=== PATIENT | female | born 1965 | race Caucasian/White ===

== ENCOUNTER 2023-03-10 11:34 | Outpatient (REF) | payer MEDICARE, MEDICAID, SELFPAY ==
--- NOTE | 2023-03-11 11:20 | MHC.AU.HA3 ---
Hearing Instrument Follow-Up- Binaural Date of Visit: 03/11/23 Right Ear: Model Bal, Color, Serial Number: Jordan Dumont M70-R SN: [id number] Color: Yusra Loss Control Technician Repair Warranty: 11/26/2022 Loss Control Technician Loss and Damage Warranty: 11/26/2022 [facility] Service Plan: 09/10/2020 Battery Size: Rechargeable Duplex Trimmer/Slim Tube: 1P [place]old/Dome/CShell/SlimTip:Small power dome (no retention tail) Type of Wax Guard: CeruShield Dispensed By: [facility] Date of Fittin09/11/2019 Left Ear: Bal, , Color, Serial Number: Jordan Dumont M70-R SN: [id number] Color: Ilenee Loss Control Technician Repair Warranty: 11/26/2022 Loss Control Technician Loss and Damage Warranty: 11/26/2022 [facility] Service Plan: 09/10/2020 Battery Size: Rechargeable Duplex Trimmer/Slim Tube: 1P Earmold/Dome/CShell/SlimTip: Small power dome (no retention tail) Type of Wax Guard: CeruShield Dispensed By: [facility] Date of Fittin09/11/2019 Follow-Up Summary: Both hearing aids, field administrator, cord, and wall plug were dropped off reporting the hearing aids are not charging. Confirmed in office. Able to reboot the hearing aids by pressing and holding the bottom of the multifunction button for 15 seconds then [address] them in the field administrator for 30 seconds. Hearing aids started charging again and fully charged in office. Connected to [employer] software - performed firmware update that noted it would improve the stability of rechargeable devices as well. Also provided new wall plug with rounded corners as [employer] has recognized that old square wall plugs can cause issues with charging. Recommendations: Hearing instrument follow-up or maintenance as needed. Please contact our clinic with any questions or concerns. Signature: Provider: Anna Henson, [facility]
== END 2023-03-10 11:35 | disposition home or self-care (01) ==
LOC: HO.HAP 11:34
PROVIDERS: Visit Provider Family Medicine
DX: Z13.89 Encounter for screening for other disorder (principal)

== ENCOUNTER 2023-03-14 08:44 | Outpatient (REF) | payer MEDICARE, MEDICAID, SELFPAY | END 2023-03-14 08:45 | disposition home or self-care (01) | LOC: HO.HAP 08:44 | PROVIDERS: Visit Provider Family Medicine | DX: Z46.1 Encounter for fitting and adjustment of hearing aid (principal); H90.3 Sensorineural hearing loss, bilateral | CPT/HCPCS: 92593; 99499 ==

== ENCOUNTER 2023-09-12 08:35 | Outpatient (RCR) | payer MEDICARE, MEDICAID, SELFPAY ==
--- NOTE | ~2023-09-12 | XR_ITS ---
EXAMINATION: XR FOOT, RIGHT CLINICAL INFORMATION: Nonhealing wound, right foot COMPARISON: None available. TECHNIQUE: AP, lateral, and oblique views of the right foot. FINDINGS: The bones are intact. No fracture. No bone destruction or periosteal reaction. Alignment is anatomic. Mild degenerative change of the first metatarsophalangeal joint. Moderate sized posterior plantar calcaneal spur and small Achilles enthesophyte are noted XR/XR foot RT min 3V IMPRESSION: 1. No acute bony abnormality. 2. No evidence of osteomyelitis.
== END 2023-12-02 10:32 | disposition home or self-care (01) ==
LOC: HO.WCC 08:35
PROVIDERS: PCP Family Medicine; Visit Provider Physician Assistant
DX: L97.512 Non-pressure chronic ulcer of other part of right foot with fat layer exposed (principal); I73.9 Peripheral vascular disease, unspecified; I73.00 Raynaud's syndrome without gangrene; G60.9 Hereditary and idiopathic neuropathy, unspecified; M48.00 Spinal stenosis, site unspecified; I10 Essential (primary) hypertension; Z87.891 Personal history of nicotine dependence
CPT/HCPCS: 11042; 73630; 99212

== ENCOUNTER 2023-10-27 08:32 | Outpatient (REF) | payer MEDICARE, MEDICAID, SELFPAY ==
--- NOTE | ~2023-10-27 | MR_ITS ---
EXAMINATION: MR FOOT WITHOUT AND WITH CONTRAST, RIGHT CLINICAL INFORMATION: Nonhealing wound 4th and 5th digits. COMPARISON: Radiographs 09/23/2023 TECHNIQUE: MRI of the right foot was performed before and after the intravenous administration of 8 mL Gadavist on a high-field scanner. FINDINGS: There is subcutaneous edema and enhancement predominantly at the dorsal aspect of the proximal 5th toe and the interspace with the 4th toe without a focal fluid collection. There is minimal edema of the 5th proximal phalanx with no appreciable enhancement or loss of T1 fatty marrow signal. This is most likely reactive. The possibility of very early or mild osteomyelitis in the setting of a wound is difficult to completely exclude. No evidence to suggest osteomyelitis elsewhere. There are degenerative changes at the 1st MTP joint and hallux sesamoid complex with presumed resection of the medial sesamoid. Visualized flexor and extensor tendons are intact. MR/MR foot RT wo/w con IMPRESSION: Minimal edema of the 5th proximal phalanx which is most likely reactive. No appreciable enhancement or loss of T1 fatty marrow signal. The possibility of very early or mild osteomyelitis in the setting of a wound is difficult to completely exclude. No abscess.
[2023-10-27] MEDS: gadobutroL 10 ML VIAL IVPUSH (09:46)
== END 2023-10-27 08:33 | disposition home or self-care (01) ==
LOC: HO.MRI 08:32
PROVIDERS: PCP Family Medicine; Visit Provider Physician Assistant
DX: S81.801D Unspecified open wound, right lower leg, subsequent encounter (principal)
CPT/HCPCS: 73720; A9585

== ENCOUNTER 2024-05-30 07:12 | Outpatient (REF) | payer MEDICARE, MEDICAID, SELFPAY ==
[2024-05-30 08:22] LABS: Anion Gap 9 (12-20); Blood Urea Nitrogen 11 mg/dL (9-16); Calcium 9.1 mg/dL (8.4-10.2); Carbon Dioxide 25 mmol/L (22-29); Chloride 108 mmol/L (96-108); Cholesterol 159 mg/dL (<200); Estimated Glomerular Filt Rate > 60; Glucose Random 83 mg/dL (60-115); HDL Cholesterol 50 mg/dL (>40); LDL Cholesterol Calculated 88 mg/dL (<100); Potassium 4.4 mmol/L (3.3-5.1); Sodium 138 mmol/L (135-145); Triglycerides 108 mg/dL (<150)
== END 2024-05-30 07:13 | disposition home or self-care (01) ==
LOC: HO.LAB 07:12
PROVIDERS: PCP Family Medicine; Visit Provider Family Medicine
DX: I10 Essential (primary) hypertension (principal)
CPT/HCPCS: 36415; 80048; 80061

== ENCOUNTER 2024-10-24 08:00 | Outpatient (RCR) | payer MEDICARE, MEDICAID, SELFPAY ==
--- NOTE | ~2024-10-24 | XR_ITS ---
EXAMINATION: XR FOOT 3 OR MORE VIEWS RIGHT HISTORY: NON HEALING WOUND-R FOOT-ATTN 2ND TOE RULE OUT OSTEOMYELITIS COMPARISON: Comparison is made with the prior examination dated 09/23/2023. FINDINGS: Three views of the right foot are submitted. Osseous mineralization is normal. No lytic lesion or osseous destruction is seen.. There is no fracture or dislocation. There is mild degenerative change and hallux valgus deformity of the great toe. There is a small plantar calcaneal spur. The soft tissues are unremarkable. XR/XR foot RT min 3V IMPRESSION: Mild degenerative change and hallux valgus deformity of the great toe. No plain film evidence of osteomyelitis. If this remains a clinical concern, three-phase bone scan or MRI could be performed. Electronically signed by: Preston Williamson MD 04/23/2024 07:30 AM CHARLA MIJARES
== END 2024-10-24 16:40 | disposition home or self-care (01) ==
LOC: HO.WCC 08:00
PROVIDERS: PCP Family Medicine; Visit Provider Surgery
DX: G60.9 Hereditary and idiopathic neuropathy, unspecified (principal); B35.3 Tinea pedis; I10 Essential (primary) hypertension; I73.00 Raynaud's syndrome without gangrene; Z09 Encounter for follow-up examination after completed treatment for conditions other than malignant neoplasm; Z87.2 Personal history of diseases of the skin and subcutaneous tissue; Z79.2 Long term (current) use of antibiotics; Z79.899 Other long term (current) drug therapy; Z79.891 Long term (current) use of opiate analgesic
CPT/HCPCS: 11042; 29580; 73630; 97597; 99202; 99212; 99213